=== PATIENT | male | born 1955 | race Caucasian/White ===

== ENCOUNTER → 2016-11-19 | Outpatient (CLI) | payer MEDICAID ==
--- NOTE | 2016-11-19 17:06 | US ---
Right Lower Extremity Ultrasound and Venous Duplex Doppler Study History: Calf pain, swelling, and discoloration. Comparison: None available. Technique: High frequency transducer was used for imaging and Doppler study of the veins of the lowe r extremity. Pulsed Doppler and color Doppler were utilized, along with various maneuvers to assess flow in the veins. Findings: There is DVT extending from the distal femoral/proximal popliteal vein through the peroneal veins in the mid calf. The common femoral vein is patent. The posterior tibial veins are poorly visu alized. Impression: DVT extending from the distal femoral/proximal popliteal vein through the peroneal veins in the mid calf. Findings discussed with Dwayne Castro DPM 11/19/2016 at 17:01.
== END ==
LOC: FIMAGING 16:00
PROVIDERS: ATTEND Podiatrist Foot & Ankle Surgery
DX: I82.4Z1 Acute embolism and thrombosis of unspecified deep veins of right distal lower extremity (principal)

== ENCOUNTER → 2016-12-23 | Outpatient (CLI) | payer MEDICAID | LOC: BMCIMAGING 11:48 | PROVIDERS: ATTEND Podiatrist Foot & Ankle Surgery | DX: Z87.312 Personal history of (healed) stress fracture (principal); Z09 Encounter for follow-up examination after completed treatment for conditions other than malignant neoplasm ==

== ENCOUNTER → 2017-02-13 | Outpatient (CLI) | payer MEDICAID | LOC: FIMAGING 12:34 | PROVIDERS: ATTEND Physician Assistant | DX: I82.401 Acute embolism and thrombosis of unspecified deep veins of right lower extremity (principal) ==

== ENCOUNTER 2017-06-27 14:00 | Inpatient (IN) | payer MEDICAID ==
--- NOTE | 2017-06-27 15:51 | EDPHY ---
H & P Stated Complaint: L foot/calf pain/swelling x 2 days Time Seen by Provider: 06/27/17 15:38 HPI/ROS: CHIEF COMPLAINT: Left foot pain x2 days HISTORY OF PRESENT ILLNESS: 61-year-old male prior history of right lower extremity DVT concurrently on Xarelto, complaining of atraumatic left dorsal foot pain, unable to bear weight, for the past 2 days with associated left calf cramping.. No discoloration. No paresthesia. No fever or chills. No flu- like symptoms. REVIEW OF SYSTEMS: A ten point review of systems was performed and is negative with the exception of the items mentioned in the HPI PAST MEDICAL & SURGICAL HISTORY: Right lower extremity DVT currently on Xarelto SOCIAL HISTORY: nonsmoker PHYSICAL EXAM (Prior to examination, patient consented to physical exam, hands were washed and my usual and customary physical exam procedures followed) 1) GENERAL: Well-developed, well-nourished, alert and oriented. Appears uncomfortable. 2) HEAD: Normocephalic, atraumatic 3) HEENT: Pupils equal, round, reactive to light bilaterally. Sclera anicteric. 4) NECK: Full range of motion, no meningeal signs. 5) LUNGS: Clear auscultation bilaterally, no wheezes, no rhonchi, no retractions. 6) HEART: Regular rate and rhythm, no murmur, no heave, no gallop. 7) ABDOMEN: No guarding, no rebound, no focal tenderness, 8) MUSCULOSKELETAL: left lower extremity: No visible abnormality, normal temperature normal color negative Homans no palpable cord, soft compartments. Tender to palpation dorsum left midfoot with soft compartments. DP, PT pulses present and brisk. Brisk capillary refill less than 2 seconds, normal color normal temperature. 9) BACK: no visual or palpable abnormality. 10) SKIN: No rash, no petechiae. 11) Psychiatric: Patient is oriented X 3, there is no agitation. DIFFERENTIAL DIAGNOSIS: In no particular include but limited to fracture, dislocation, compartment syndrome, peripheral vascular disease - Personal History Current Tetanus/Diphtheria Vaccine: Unsure Current Tetanus Diphtheria and Acellular Pertussis (TDAP): Unsure - Medical/Surgical History Hx Asthma: No Hx Chronic Respiratory Disease: No Hx Diabetes: No Hx Cardiac Disease: No Hx Renal Disease: No Hx Cirrhosis: No Hx Alcoholism: No Hx HIV/AIDS: No Hx Splenectomy or Spleen Trauma: No Other PMH: Ortho/nose. is on Statin for High Calcium index due to routine cardiac MRI in Jun, R foot fx, DVT R leg - Social History Smoking Status: Never smoked Constitutional: Initial Vital Signs Temperature (C) 36.9 C 06/27/17 14:34 Heart Rate 81 06/27/17 14:34 Respiratory Rate 17 06/27/17 14:34 Blood Pressure 122/76 H 06/27/17 14:34 O2 Sat (%) 95 06/27/17 14:34 O2 Delivery Mode Room Air Allergies/Adverse Reactions: No Known Allergies Allergy (Verified 06/27/17 14:33) Home Medications: Medication Instructions Recorded Hydrocodone/APAP 5/325 [[place] 1 tab PO Q4H PRN #10 tab 09/29/16 5/325] Ibuprofen [Motrin (*)] 200 - 600 mg PO PRN PRN 06/27/17 Loratadine 10 mg PO DAILY PRN 06/27/17 Rivaroxaban [Xarelto 10mg (*)] 10 mg PO DAILY 06/27/17 Medical Decision Making - Diagnostics Imaging Results: Imaging Impressions Foot X-Ray 06/27/17 15:49 Impression: Calcific tendinopathy within the distal Achilles tendon and the plantar fascia. Otherwise negative left foot radiographs. Extremity Venous Study 06/27/17 15:50 Impression: No deep venous thrombosis left leg. Findings and recommendations discussed with Emergency Department physician, Chayo Lovell at 16:37 hour, 06/27/2017. Final report concurs with initial preliminary interpretation. Images reviewed myself ED Course/Re-evaluation: 4:01 p.m.: Discussed case Dr. Matt Sung in the ER. Plan will be imaging of the left lower extremity. Doubt compartment syndrome. Doubt septic arthritis. Ultimately plan will be admission as patient states that he is unable to care for himself, his is unable to care for him. 5:20 p.m.: Re-evaluation, he remains tender to palpation dorsum left foot with negative CT scan, negative x-ray, ultrasound negative for DVT. Doubt compartment syndrome. Doubt septic arthritis. We discussed discharged with splint and crutches which he does not feel he is able to do safely and successfully. Re-evaluation at this time, is neurovascular intact. 5:23 p.m.: Phone consultation with whole will admit patient - Data Points Laboratory Results: Laboratory Results 06/27/17 16:00 06/27/17 16:00 06/27/17 06/27/17 16:00 16:00 WBC 12.76 10^3/uL H 10^3/uL (3.80-9.50) RBC 5.06 10^6/uL 10^6/uL (4.40-6.38) Hgb 15.6 g/dL g/dL (13.7-17.5) Hct 46.5 % % (40.0-51.0) MCV 91.9 fL fL (81.5-99.8) MCH 30.8 pg pg (27.9-34.1) MCHC 33.5 g/dL g/dL (32.4-36.7) RDW 13.2 % % (11.5-15.2) Plt Count 210 10^3/uL 10^3/uL (150-400) MPV 10.2 fL fL (8.7-11.7) Neut % (Auto) 73.0 % % (39.3-74.2) Lymph % (Auto) 13.4 % L % (15.0-45.0) [place] % (Auto) 10.4 % % (4.5-13.0) Eos % (Auto) 2.4 % % (0.6-7.6) Baso % (Auto) 0.5 % % (0.3-1.7) Nucleat RBC Rel Count 0.0 % % (0.0-0.2) Absolute Neuts (auto) 9.30 10^3/uL H 10^3/uL (1.70-6.50) Absolute Lymphs (auto) 1.71 10^3/uL 10^3/uL (1.00-3.00) Absolute Monos (auto) 1.33 10^3/uL H 10^3/uL (0.30-0.80) Absolute Eos (auto) 0.31 10^3/uL 10^3/uL (0.03-0.40) Absolute Basos (auto) 0.07 10^3/uL 10^3/uL (0.02-0.10) Absolute Nucleated RBC 0.00 10^3/uL 10^3/uL (0-0.01) Immature Gran % 0.3 % % (0.0-1.1) Immature Gran # 0.04 10^3/uL 10^3/uL (0.00-0.10) Sodium 141 mEq/L mEq/L (134-144) Potassium 4.0 mEq/L mEq/L (3.5-5.2) Chloride 103 mEq/L mEq/L (97-110) Carbon Dioxide 24 mEq/l mEq/l (22-31) Anion Gap 14 mEq/L mEq/L (8-16) BUN 16 mg/dL mg/dL (7-23) Creatinine 1.0 mg/dL mg/dL (0.7-1.3) Estimated GFR > 60 Glucose 94 mg/dL mg/dL (70-100) Uric Acid 7.9 mg/dL mg/dL (3.5-8.5) Calcium 9.9 mg/dL mg/dL (8.5-10.4) Departure - Departure Disposition: [facility] Acute Clinical Impression: left foot pain Condition: Fair
[2017-06-27 16:08] LABS: % IMMATURE GRANULYOCYTES 0.3 % (0.0-1.1); ABSOLUTE IMMATURE GRANULOCYTES 0.04 10^3/uL (0.00-0.10); ADD DIFF? NO; ADD MORPH? NO; ADD SCAN? NO; ATYPICAL LYMPHOCYTE FLAG 0 (0-99); FRAGMENT RBC FLAG 0 (0-99); HEMATOCRIT 46.5 % (40.0-51.0); HEMOGLOBIN 15.6 g/dL (13.7-17.5); LEFT SHIFT FLG 0 (0-99); LIPEMIA HEMOLYSIS FLAG 80 (0-99); MEAN CELL HEMOGLOBIN 30.8 pg (27.9-34.1); MEAN CELL HEMOGLOBIN CONCENTR. 33.5 g/dL (32.4-36.7); MEAN CELL VOLUME 91.9 fL (81.5-99.8); MEAN PLATELET VOLUME 10.2 fL (8.7-11.7); PLATELET CLUMPS FLAG 0 (0-99); PLATELET COUNT 210 10^3/uL (150-400); RED BLOOD CELL COUNT 5.06 10^6/uL (4.40-6.38); RED CELL DISTRIBUTION WIDTH 13.2 % (11.5-15.2)
[2017-06-27 17:17] LABS: ANION GAP 14 mEq/L (8-16); CALCIUM 9.9 mg/dL (8.5-10.4); CARBON DIOXIDE 24 mEq/l (22-31); CHLORIDE 103 mEq/L (97-110); GLOMERULAR FILTRATION RATE > 60; GLUCOSE 94 mg/dL (70-100); SODIUM 141 mEq/L (134-144); URIC ACID 7.9 mg/dL (3.5-8.5)
[2017-06-27] MEDS ORDERED: ACETAMINOPHEN 325 MG TAB PO PRN (18:38)
[2017-06-27] MEDS ORDERED: LORazepam 0.5 MG TAB PO PRN (18:38)
[2017-06-27] MEDS ORDERED: ONDANSETRON 4 MG/2 ML VIAL IVP PRN (18:38)
[2017-06-27] MEDS ORDERED: HYDROmorphONE/DILAUDID 1 MG/ML INJ IVP PRN (18:38)
[2017-06-27] MEDS ORDERED: PROMETHAZINE HCL 25 MG/ML INJ IVP PRN (18:38)
[2017-06-27] MEDS ORDERED: oxyCODONE IR 5 MG TAB PO PRN (18:38)
[2017-06-27] MEDS ORDERED: ONDANSETRON DISINTEGRATING 4 MG TAB PO PRN (18:38)
[2017-06-27] MEDS ORDERED: HYDROCODONE/APAP 5/325 TAB PO PRN (18:40)
[2017-06-27] MEDS ORDERED: IBUPROFEN 200 MG TAB PO PRN (18:40)
[2017-06-27] MEDS: ATORVASTATIN CALCIUM 20 MG TAB PO SCH (20:27)
[2017-06-27] MEDS: GABAPENTIN 300 MG CAP PO SCH (20:27)
[2017-06-27] MEDS ORDERED: IBUPROFEN 800 MG TAB PO PRN (23:28)
--- NOTE | 2017-06-28 00:32 | GHP ---
[f rep st] HISTORY AND PHYSICAL DATE OF ADMISSION: 06/27/2017 CHIEF COMPLAINT: Left foot pain. HISTORY OR PRESENT ILLNESS: This is a 61-year-old man with past medical history of chronic right nell t and subacute left foot pain to the extent where he is no longer able to walk. The patient notes th at he had been dealing with right foot pain for about the last 8 months. It was thought initially to be secondary to a stress fracture but this was never clearly distinguished. He was treated with a b oot and with instructions to try to offload that foot. Due to that, he was walking in a way that was favoring his left leg for about the last 9 months. Over the last couple of weeks, and more signific antly over the last several days, he has developed now severe left foot pain with associated swelling and difficulty walking. He notes the pain has been so severe that he has been unable to really walk at all and was needing to crawl around at home. He notes his right foot has improved and he has imp roved range of motion and decreased swelling though he still has some symptoms there. His left foot is now very significantly bothering him as above. He notes he has been mostly followed by a podiatri st and does not feel as if he has necessarily been treated appropriately. He has been to see Physica l Therapy and has a plan to continue to see them as well. He notes that for this pain, he has not re ally taken any medications other than 1 Vicodin yesterday. PAST MEDICAL HISTORY: Includes: 1. Hyperlipidemia. 2. Right lower extremity deep vein thrombosis. PAST SURGICAL HISTORY: No significant past surgical history. FAMILY HISTORY: Reviewed and noncontributory. SOCIAL HISTORY: Patient is . He is accompanied by his and son. He is a nonsmoker, nond liudmila, nondrug user. REVIEW OF SYSTEMS: A 10-point review of systems obtained and negative, except as per History of Pres ent Illness. HOME MEDICATIONS: 1. Lipitor. 2. Ibuprofen. 3. [place]. 4. Loratadine. 5. Xarelto. ALLERGIES: No known drug allergies. PHYSICAL EXAM: VITAL SIGNS: BP 150/75, heart rate 82, respiratory rate 18, O2 SATs 96% on room air. Temperature 36.8. GENERAL APPEARANCE: Well-developed/well-nourished man. He is in mild distress. EYES: Anicteric. HENT: Oropharynx clear. CARDIOVASCULAR: Regular rate and rhythm, no MRG. PUL MONARY: CTA bilaterally. Normal work of breathing. ABDOMEN: Soft, nontender. Positive bowel soun ds. EXTREMITIES: Left lower extremity with some mild swelling in the foot to the ankle. Decreased range of motion in the left foot. Otherwise normal musculoskeletal exam. SKIN: Warm, dry, well per fused. NEURO/PSYCH: Oriented and appropriate, pleasant. CLINICAL DATA: Labs reviewed. Significant for white blood cell count of 12.76, chemistry is unremar kable. Venous ultrasound personally reviewed. No DVT. Foot x-ray personally reviewed and interpreted, shows calcific tendinopathy within the distal Ike s tendon and plantar fascial. Otherwise negative. Extremities: CT of the left foot shows chronic tendinopathy of the distal Achilles tendon with possi ble calcific tendinopathy and also plantar fasciitis. ASSESSMENT/PLAN: This is a 61-year-old man who has been dealing with initially right and now left fo ot pain secondary to likely plantar fasciitis with now subsequent inability to walk safely. 1. Plantar fasciitis. This is noted by imaging on the left and is consistent with his history. Lik ellie triggered by having been fairly inactive and needing to favor the left foot while his right foot was injured. The patient is very reluctant to try any medications but does describe significant what sounds like neuropathic component to his pain and was willing to start a trial of gabapentin. He al so states that in the past, for his other foot, he did well with a short course of prednisone which w ill be initiated in the morning. Will also provide p.r.n. oxycodone and ibuprofen. Will check an ES R and CRP and also start a PPI while patient is on prednisone especially given that he may also use i buprofen concurrently. 2. Recent deep venous thrombosis. This is in the setting of significant inactivity due to his bilat eral foot pain. He is on Xarelto. Again, PT/OT strongly recommended. 3. Gait instability. The patient has been crawling to get around at home and really is quite limite d in his mobility due to his ongoing pain. Discussed with him the different options including: (1) more aggressive pain management, (2) consideration of a wheelchair, or (3) consideration of transfer to a jail facility. At this point, will await PT/OT evaluation and recommendations. I do wonder if his pain was better controlled whether or not he would be able to ambulate slightly more s afely. He is now willing to try some medications. 4. Hyperlipidemia. Will continue his atorvastatin. DISPOSITION: Observation status. Suspect patient will need less than 48 hours stay for evaluation a nd management of above. The patient's care plan was reviewed at length with his and son present at bedside and all their questions were answered. Care plan was reviewed with the ER physician. /[id number]/MODL
[2017-06-28 06:37] LABS: HEMATOCRIT 40.6 % (40.0-51.0)
[2017-06-28 07:57] VITALS: RESP 18
[2017-06-28] MEDS ORDERED: CETIRIZINE 10 MG TAB PO PRN (09:00)
[2017-06-28] MEDS: predniSONE 20 MG TAB PO SCH (09:03)
[2017-06-28] MEDS: RIVAROXABAN 10 MG TAB PO SCH (09:03)
[2017-06-28] MEDS: GABAPENTIN 300 MG CAP PO SCH ×2 (09:04→21:44)
[2017-06-28] MEDS: PANTOPRAZOLE SODIUM 40 MG TAB PO SCH (09:04)
--- NOTE | 2017-06-28 15:10 | ASMTCMCOM ---
CM Note CM Note Notes: Met w/pt and , gave loan closet list. Pt hoping to get ortho consult regarding foot pain, may need homecare, REGLA w/f. Date Signed: 06/28/2017 03:09 PM Electronically Signed By:Maria Elena An RN
--- NOTE | 2017-06-28 15:16 | HOSPPROG ---
Hospitalist Progress Note Assessment/Plan: 61y male with c/o foot pain and inability to ambulate. First encounter, chart reviewed. #Left foot pain plantar fascitis per CT scan D/W Dr Lehman MRI done, report pending cont prednisone cont pain meds #Right foot pain chronic for 9 months etiol unclear stable still painful with decreased ROM has seen podiatry multiple times #Hx DVT on xeralto no new clot per US #Dispo unclear, unsafe to ambulate change to inpatient status given need for further workup cont PT/OT eval cont prednisone and pain meds will need HHC have spent >45 minutes in care and coordination with this patient Subjective: Still having pain. Tired. Unable to ambulate. Objective: Vital Signs Temp Pulse Resp BP Pulse Ox 36.4 C 83 18 111/75 94 06/28/17 12:00 06/28/17 12:00 06/28/17 12:00 06/28/17 12:00 06/28/17 12:00 Laboratory Results 06/28/17 06:20 06/27/17 06/28/17 06/29/17 05:59 05:59 05:59 Output Total 450 400 Balance -450 -400 - Physical Exam Constitutional: no apparent distress, obese, uncomfortable Eyes: PERRL, anicteric sclera, EOMI Ears, Nose, Mouth, Throat: moist mucous membranes, hearing normal, ears appear normal Cardiovascular: regular rate and rhythym, No JVD, No edema Respiratory: no respiratory distress, no rales or rhonchi, reduced air movement Gastrointestinal: normoactive bowel sounds, No tenderness, No ascites Skin: warm, normal color, No erythema Musculoskeletal: joint tenderness, pain with ROM, abnormal gait, generalized weakness Neurologic: AAOx3 Psychiatric: interacting appropriately, not anxious, not encephalopathic, thought process linear ICD10 Worksheet Patient Problems: Problems Problem Status Onset Foot pain Acute Foot pain, bilateral Acute - ICD10 Problem Qualifiers (1) Foot pain Qualifiers: Laterality: bilateral Qualified Code(s): M79.671 - Pain in right foot; M79.672 - Pain in left foot (2) Foot pain, bilateral
--- NOTE | 2017-06-28 19:43 | GCON ---
[f rep st] CONSULTATION DATE OF CONSULTATION: 06/28/2017 CHIEF COMPLAINT: Left foot pain. HISTORY OF PRESENT ILLNESS: The patient is a 61-year-old gentleman with a chronic history of right a nd left foot pain. States approximately 9 months ago he started having discomfort over the plantar a nd heel aspect of his right foot. Over the last couple of weeks, he has had increasing left foot dee n. On the day prior to admission, he had increased severity, was unable to ambulate. He therefore p resented to the emergency department for admission secondary to mobility issues and pain control. He has undergone extensive previous evaluation with 2 outside podiatrists and has not obtained a signif icant diagnosis in his opinion. He is very frustrated with his ongoing pain. I briefly spoke with him regarding that I had reviewed his MRI. This demonstrates fluid over the lat eral aspect of his ankle and foot. There is no evidence of osteomyelitis, gross tendon, or soft tiss ue disruption. He does have some arthritis diffusely throughout the foot and ankle. I related that I am not a foot and ankle specialist. At this point, I would recommend that he follow up with an [facility] foot and ankle specialist. I have given him the names of Lily. Scott Patino and Chris He at [facility] and Kevon Reyes at [facility] as the next level of ref erral. In the mean time, he states he is feeling better after starting oral steroids today. He may continue to be weightbearing and range of motion as tolerated. He may contact my clinic for further direction if he is unable to be seen by a foot and ankle orthopedist. /[id number]/MODL
[2017-06-28] MEDS: ATORVASTATIN CALCIUM 20 MG TAB PO SCH (21:44)
[2017-06-29 07:23] VITALS: BP 124/74; PULSE 68; TEMP 97.9; O2SAT 94
[2017-06-29] MEDS: RIVAROXABAN 10 MG TAB PO SCH (08:24)
[2017-06-29] MEDS: PANTOPRAZOLE SODIUM 40 MG TAB PO SCH (08:24)
[2017-06-29] MEDS: GABAPENTIN 300 MG CAP PO SCH (08:24)
[2017-06-29] MEDS: predniSONE 20 MG TAB PO SCH (08:24)
--- NOTE | 2017-06-29 11:22 | PDIAF ---
- Diagnosis Diagnosis: foot pain Code Status: Full Code - Medication Management Discharge Medications: Medications to Continue on Transfer Hydrocodone/APAP 5/325 [[place] 5/325 (*)] 1 tab PO Q4H PRN #10 tab 09/29/16 [ Last Taken 06/27/17] Atorvastatin Calcium [Lipitor 20 mg (*)] 20 mg PO HS 06/27/17 [Last Taken ] Loratadine 10 mg PO DAILY PRN 06/27/17 [Last Taken Unknown] Rivaroxaban [Xarelto 10mg (*)] 10 mg PO DAILY 06/27/17 [Last Taken 06/27/17] Acetaminophen [Tylenol 325mg (*)] 650 mg PO Q4HRS PRN tab 06/29/17 [Last Taken Unknown] Gabapentin [Neurontin 300 MG (*)] 300 mg PO BID #60 cap 06/29/17 [Last Taken Unknown] Ibuprofen [Motrin (*)] 800 mg PO Q8HRS PRN tab 06/29/17 [Last Taken Unknown] predniSONE 40 mg PO DAILY #6 tablet 06/29/17 [Last Taken Unknown] Discharge Medications: Refer to the Discharge Home Medication list for PRN reason. PICC Care - Routine: N/A - Orders Services needed: Physical Therapy, Occupational Therapy Diet Recommendation: no restrictions on diet - Follow Up Care Current Providers and Referrals: Shayy Mcghee MD [Primary Care Provider] - As per Instructions
--- NOTE | 2017-06-29 11:27 | PDIAF ---
- Diagnosis Diagnosis: foot pain Code Status: Full Code - Medication Management Discharge Medications: Medications to Continue on Transfer Hydrocodone/APAP 5/325 [[place] 5/325 (*)] 1 tab PO Q4H PRN #10 tab 09/29/16 [ Last Taken 06/27/17] Atorvastatin Calcium [Lipitor 20 mg (*)] 20 mg PO HS 06/27/17 [Last Taken ] Loratadine 10 mg PO DAILY PRN 06/27/17 [Last Taken Unknown] Rivaroxaban [Xarelto 10mg (*)] 10 mg PO DAILY 06/27/17 [Last Taken 06/27/17] Acetaminophen [Tylenol 325mg (*)] 650 mg PO Q4HRS PRN tab 06/29/17 [Last Taken Unknown] Gabapentin [Neurontin 300 MG (*)] 300 mg PO BID #60 cap 06/29/17 [Last Taken Unknown] Ibuprofen [Motrin (*)] 800 mg PO Q8HRS PRN tab 06/29/17 [Last Taken Unknown] predniSONE 40 mg PO DAILY #6 tablet 06/29/17 [Last Taken Unknown] Discharge Medications: Refer to the Discharge Home Medication list for PRN reason. PICC Care - Routine: N/A - Orders Services needed: Home Care, Physical Therapy, Occupational Therapy Home Care Face to Face: I certify that this patient was under my care and that I had the required [id number] encounter meeting the encounter requirements on the discharge day. My findings support the fact that the patient is homebound as defined in CMS Chapter 7 Medicare Benefits Manual 30.1.1, The condition of the patient is such that there exists a normal inability to leave home and consequently, leaving home would require a considerable and taxing effort. Diet Recommendation: no restrictions on diet - Follow Up Care Current Providers and Referrals: Shayy Mcghee MD [Primary Care Provider] - As per Instructions
--- NOTE | 2017-06-29 12:21 | ASMTCMCOM ---
CM Note CM Note Notes: Spoke w/pt re; dc w/homecare. Yudy at [facility] notified, orders in chart for PT/OT, notified. CM available for any changes. Date Signed: 06/29/2017 12:20 PM Electronically Signed By:Maria Elena An RN
--- NOTE | 2017-06-29 13:45 | GDS ---
[f rep st] DISCHARGE SUMMARY DISCHARGE DIAGNOSES: 1. Bilateral foot pain. 2. Potential for plantar fasciitis. CONSULTATION: Dr. Lehman of orthopedics. STUDIES AND PROCEDURES: 1. Foot x-ray. 2. Venous Doppler study. 3. CT of the lower extremity. 4. MRI of the left lower extremity. PHYSICAL EXAM: GENERAL: The patient is alert. VITAL SIGNS: Afebrile at 36.6, pulse is 68, respira tory rate is 18, blood pressure is 124/74, he is saturating 94% on room air. I have seen and evaluat ed the patient on the day of discharge. HOSPITAL COURSE: The patient is a 61-year-old male, who presented to the emergency room with complai nts of inability to walk secondary to foot pain. He was evaluated and diagnosed with left lower extr emity acute onset of foot pain. During this hospitalization, he received a thorough evaluation with an orthopedics consult. CT scan of the left lower extremity notes plantar fasciitis. Lower extremit y MRI is suggestive of cellulitis, however, there is no infection noted. This is likely secondary to inflamed tissue. The patient has been started on prednisone and is responding well. His pain has s ignificantly improved. He is able to ambulate with a walker today, prior to disposition. He will co ntinue physical therapy, as well as occupational therapy in the outpatient setting, and he will follo w up with an orthopedist of his choice. He has been referred to Dr. Patino, as well as Dr. He in the outpatient setting for further evaluation and management of his bilateral foot pain. There are no pending studies. DISCHARGE MEDICATIONS: Please refer to EMR form. I have provided the patient a prescription for corry apentin, prednisone, [place] at the time of disposition. I have not adjusted his other previously pres cribed home medications. I have spent greater than 35 minutes in the care, coordination, and outpatient followup management of this patient's disposition. /[id number]/MODL
--- NOTE | 2017-06-29 17:31 | ASDISCHSUM ---
Discharge Information Plan Status:Home with Home Health Medically Cleared to Leave: Discharge Date:06/29/2017 12:38 PM CM D/C Disposition:Home Health Service ADT D/C Disposition:Home, Routine, Self-Care Projected Discharge Date:06/29/2017 12:38 PM Transportation at D/C:Family Discharge Delay Reason: Follow-Up Date:06/29/2017 12:38 PM Discharge Slot: Final Diagnosis: Placement Information Patient Contact Information Contact Name:VALERY Relationship: Address:[address] [place] [address] City:[place] Phone: State/Zip Code:[place] [address] Email: Financial Information Financial Class: Primary Plan Desc:[employer] Primary Plan Number:[id number] Secondary Plan Desc: Secondary Plan Number: Assessment Information [facility] CM Progress Note CM Note CM Note Notes: Met w/pt and , gave ambrocio closet list. Pt hoping to get ortho consult regarding foot pain, may need homecare, CM w/f. Date Signed: 06/28/2017 03:09 PM Electronically Signed By:Maria Eelna An RN [facility] CM Progress Note CM Note CM Note Notes: Spoke w/pt re; dc w/homecare. Yudy at [facility] notified, orders in chart for PT/OT, notified. CM available for any changes. Date Signed: 06/29/2017 12:20 PM Electronically Signed By:Maria Elena An RN Intervention Information
== END 2017-06-29 12:38 | disposition home or self-care (01) | DRG 558 ==
LOC: F3E 18:17 → OBSVTOIN 06-28 15:18
PROVIDERS: ADMIT Internal Medicine; ATTEND Internal Medicine
DX: M72.2 Plantar fascial fibromatosis (principal); E78.5 Hyperlipidemia, unspecified; Z86.718 Personal history of other venous thrombosis and embolism; Z79.01 Long term (current) use of anticoagulants
CPT/HCPCS: 97116-GP; 97162-GP; 97165-GO; 97530-GP; 97535-GO; G0378; J1170

== ENCOUNTER → 2018-11-23 | Outpatient (CLI) | payer OTHER, MEDICARE | LOC: BMCIMAGING 10:38 | DX: Z13.820 Encounter for screening for osteoporosis (principal); Z87.81 Personal history of (healed) traumatic fracture; Z86.718 Personal history of other venous thrombosis and embolism ==

== ENCOUNTER → 2018-11-27 | Outpatient (CLI) | payer OTHER, MEDICARE | LOC: BHFA 14:30 | PROVIDERS: ATTEND Internal Medicine Interventional Cardiology | DX: M84.375A Stress fracture, left foot, initial encounter for fracture (principal); Z86.718 Personal history of other venous thrombosis and embolism ==

== ENCOUNTER → 2019-01-06 | Outpatient (CLI) | payer OTHER, MEDICARE | LOC: CIMAGING 09:26 | PROVIDERS: ATTEND Internal Medicine Cardiovascular Disease | DX: R10.13 Epigastric pain (principal); K76.0 Fatty (change of) liver, not elsewhere classified; Z82.49 Family history of ischemic heart disease and other diseases of the circulatory system ==